=== PATIENT | female | born 1990 | race American Indian/Alaskan Native ===

== ENCOUNTER 2017-09-13 22:36 | Emergency (ER) | payer SELFPAY ==
[2017-09-13 22:54] VITALS: BP 157/82; PULSE 59; RESP 20; TEMP 97.8; O2SAT 100
[2017-09-13 23:30] LABS: SQUAMOUS EPITHIAL 19 /hpf (0-5); URINE BACTERIA OCC (<OCC); URINE BILIRUBIN NEGATIVE (NEGATIVE); URINE BLOOD 1+ (NEGATIVE); URINE CLARITY Hazy (Clear); URINE COLOR Yellow (YELLOW); URINE GLUCOSE (UA) NORMAL (Normal); URINE LEUKOCYTE ESTERASE 3+ Leu/uL (Negative); URINE PROTEIN 1+ mg/dL (NEGATIVE); URINE UROBILINOGEN NORMAL mg/dL (0.2-1.0); WBC CLUMPS FEW /hpf
[2017-09-13] MEDS ORDERED: cefTRIAXone (Rocephin) 250 mg Inj IM STA (23:55)
--- NOTE | 2017-09-14 00:27 | C.PDOC ---
History Of Present Illness 26 y.o female c/o foul smelling yellow vaginal discharge today and dyuria. pt has had unprotected sex recently. no abdominal pain, n/v/d, no fever, no back pain. Time Seen by Provider: 09/13/17 23:04 Chief Complaint (Nursing): Female Genitourinary History Per: Patient History/Exam Limitations: no limitations Onset/Duration Of Symptoms: Days (1) Current Symptoms Are (Timing): Still Present Severity: Moderate Quality Of Discomfort: Burning Associated Symptoms: Urinary Symptoms. denies: Fever, Chills, Nausea, Vomiting Past Medical History Reviewed: Historical Data, Nursing Documentation, Vital Signs Vital Signs: Last Vital Signs Temp 97.8 F 09/13/17 22:47 Pulse 59 L 09/13/17 22:47 Resp 20 09/13/17 22:47 BP 157/82 H 09/13/17 22:47 Pulse Ox 100 09/14/17 00:40 - Medical History PMH: Hyperthyroidism Family History: States: Unknown Family Hx - Social History Hx Alcohol Use: Yes Hx Substance Use: No Review Of Systems Constitutional: Negative for: Fever, Chills Gastrointestinal: Negative for: Nausea, Vomiting, Abdominal Pain, Diarrhea Genitourinary: Positive for: Dysuria, Vaginal Discharge Skin: Negative for: Rash Neurological: Negative for: Weakness, Numbness Physical Exam - Physical Exam Appears: Non-toxic, No Acute Distress Skin: Warm, Dry Head: Atraumatic, Normacephalic Cardiovascular: Rhythm Regular, No Murmur Respiratory: No Decreased Breath Sounds, No Wheezing Gastrointestinal/Abdominal: Bowel Sounds, Soft, No Tenderness Pelvic: Normal External Exam, Normal Bimanual Exam, No Vaginal Bleeding, Vaginal Discharge (yellow discharge in vault), No Cervical Motion Tenderness, No Cervix Open, No Adnexal Tenderness, No Tender Uterus Neurological/Psych: Oriented x3, Normal Speech, Normal Cognition ED Course And Treatment O2 Sat by Pulse Oximetry: 100 Medical Decision Making Medical Decision Making: pt with dysuria, recent unprotected sex with dicharge- tx for vaginaitis and uti. upreg neg. safe sex discussed. Disposition Counseled Patient/Family Regarding: Diagnosis, Need For Followup, Rx Given - Disposition Referrals: [facility] [Outside] Disposition: HOME/ ROUTINE Disposition Time: 00:37 Condition: GOOD Additional Instructions: Please follow up in womens clinic/medical clinic or brand marketing coordinator of your choice in a week. Advise no intercourse until re-evaluated. Drink increased fluids. Recommend safe sex at all times. Prescriptions: Nitrofurantoin Macrocrystals [Macrobid] 100 mg PO BID #14 cap Instructions: Urinary Tract Infection, Adult (DC), Vaginitis Forms: [facility] (Lithuanian), General Discharge Instructions - Clinical Impression Clinical Impression: Vaginitis, UTI (urinary tract infection)
== END 2017-09-14 00:45 | disposition home or self-care (01) ==
LOC: C.ER 22:36
DX: N39.0 Urinary tract infection, site not specified (principal); N76.0 Acute vaginitis
CPT/HCPCS: 81001; 87086; 87491; 87591; 96372; 99284; J0696